=== PATIENT | female | born 1985 | race Caucasian/White ===

== ENCOUNTER 2019-02-16 06:06 | Inpatient (IN) ==
[2019-02-16] MEDS ORDERED: D5 1/2 NS 1000 ML 1,000 ML IV ONE (06:24)
[2019-02-16] MEDS ORDERED: D5LR 1L W PITOCIN 10 UNITS/L 10 UNITS/1,000 ML BAG IV ONE (06:24)
--- NOTE | 2019-02-16 06:58 | DR.OB ---
OB Quick Note - Assessment/Plan Assessment/Plan: L&D 02/16/19 at 6:50am S-No complaint. O-Afebrile,VSS [id number] with good LTV, +accel, no decel. CTX=occasional, mild CVX=3cm/50%/-1/VTX AROM with clear fluid. IUPC and FSE placed. A-IUP at 38 0/7 weeks for induction Oligohydramnios AMA P-Begin pitocin induction Anticipate
[2019-02-16] MEDS ORDERED: NUBAIN INJ 200 MG VIAL MULTIDOSE IVP PRN (07:05)
[2019-02-16] MEDS ORDERED: MORPHINE SULFATE INJ 2 MG INJ IVP PRN (07:05)
[2019-02-16] MEDS ORDERED: PITOCIN IVP ONE (07:05)
[2019-02-16] MEDS ORDERED: REGLAN INJ 10 MG VIAL IVP PRN (07:05)
[2019-02-16] MEDS ORDERED: D5LR 1L W PITOCIN 10 UNITS/L 10 UNITS/1,000 ML BAG IV PRN (07:05)
[2019-02-16] MEDS ORDERED: D5 1/2 NS 1000 ML 1,000 ML IV SCH (07:05)
[2019-02-16] MEDS ORDERED: PHENERGAN INJ 25 MG IM PRN ×2 (07:05→14:38)
[2019-02-16] MEDS ORDERED: FENTANYL INJ 100 mcg ONE (07:28)
[2019-02-16] MEDS ORDERED: LR 1000 ML IV 1,000 ML IV ONE (07:28)
[2019-02-16] MEDS ORDERED: NAROPIN EPIDURAL 0.2% + FENTANYL 90MCG 60 ML EPI ONE (07:29)
[2019-02-16] MEDS ORDERED: XYLOCAINE 2% and EPINEPHRINE 1:100,000 ONE (08:48)
--- NOTE | 2019-02-16 11:57 | DR.OB ---
OB Quick Note - Assessment/Plan Assessment/Plan: L&D 02/16/19 at 11:45am Pitocin=6mu/min. S-No complaint. s/p epidural. O-Afebrile,VSS [id number] with good LTV, +accel, no decel. CTX=q 1 1/2 to 2 1/2 min., about 45-55mmHg CVX=4cm/100%/0 A-IUP at 38 0/7 weeks for induction Oligohydramnios AMA GERD P-Cont. pitocin induction Anticipate
[2019-02-16] MEDS: D5 1/2 NS 1L W PITOCIN 20 UNITS/L 20 UNITS/1,000 ML BAG IV ONE ×2 (14:28→16:04)
[2019-02-16] MEDS: PITOCIN ONE ×2 (14:28→16:03)
--- NOTE | 2019-02-16 14:38 | DR.OB ---
OB Quick Note - Assessment/Plan Assessment/Plan: Delivery Note BOX PULLER 02/16/19 at 2:30pm Patient complete and pushing. Head delivered over intact perineum. No nuchal cord. Nose and mouth bulb suctioned. Body delivered over intact perineum. Cord clamped x 2 and cut. Infant handed to attendant. Cord sent for gases. Placenta delivered spontaneously / intact / 3 vessel cord. No CVX / vaginal / perineal tears noted. Viable male , VTX/OA, wt=6'5" and 9/9, stable to NBN. Mother stable to RR. BNI=251yr.
[2019-02-16] MEDS ORDERED: AMBIEN PO PRN (15:52)
[2019-02-16] MEDS ORDERED: ADACEL or BOOSTRIX TDaP VACCINE IM ONE (15:52)
[2019-02-16] MEDS ORDERED: DERMOPLAST SPRAY TOP PRN (15:52)
[2019-02-16] MEDS ORDERED: MILK OF MAGNESIA PO PRN (15:52)
[2019-02-16] MEDS: D5 1/2 NS 1000 ML 1,000 ML with PITOCIN 20 UNITS IV SCH ×2 (16:04)
[2019-02-16] MEDS: MOTRIN TAB 800 MG PO PRN (18:41)
[2019-02-17] MEDS: D5 1/2 NS 1000 ML 1,000 ML with PITOCIN 20 UNITS IV SCH ×8 (05:01→23:59)
[2019-02-17 05:33] LABS: HEMATOCRIT 34.7 % (36.0-47.0); HEMOGLOBIN 11.7 g/dL (12.0-16.0)
[2019-02-17] MEDS: PROTONIX TAB 40 MG PO SCH (08:37)
[2019-02-17] MEDS: PRENATAL PLUS PO SCH (08:37)
[2019-02-17] MEDS: MOTRIN TAB 800 MG PO PRN ×2 (08:39→16:28)
[2019-02-18] MEDS: D5 1/2 NS 1000 ML 1,000 ML with PITOCIN 20 UNITS IV SCH ×2 (06:06)
[2019-02-18 08:21] VITALS: BP 130/72
[2019-02-18] MEDS: PRENATAL PLUS PO SCH (08:22)
[2019-02-18] MEDS: MOTRIN TAB 800 MG PO PRN (08:22)
[2019-02-18] MEDS: PROTONIX TAB 40 MG PO SCH (08:23)
== END 2019-02-18 10:35 | disposition home or self-care (01) | DRG 807 ==
LOC: LD 06:06 → MED/SURG 15:35
PROVIDERS: ADMIT Specialist; ATTEND Specialist
DX: O99.613 Diseases of the digestive system complicating pregnancy, third trimester; O41.03X0 Oligohydramnios, third trimester, not applicable or unspecified; Z37.0 Single live birth; Z3A.38 38 weeks gestation of pregnancy
CPT/HCPCS: 36415; 59409; 85014; 85018; A4222; S0197; J2001; J2590; J3010; J7120; S5010